=== PATIENT | female | born 1965 | race African-American/Black ===

== ENCOUNTER 2024-08-19 11:16 | Emergency (ER) | payer OTHER, MEDICAID ==
[~2024-08-19] VITALS: Ht 170.2 cm; Wt 140.0 kg
[~2024-08-19 11:16] MED LIST: ALBU18HF2 IH; LISI10TA26 PO
[2024-08-19 11:22] VITALS: O2SAT 98
[2024-08-19] MEDS: ACETAMINOPHEN 325MG TABLET PO ONE (12:06)
[2024-08-19] MEDS: LIDOCAINE 5% PATCH TOP SCH (12:06)
[2024-08-19] MEDS: IBUPROFEN 400MG TABLET PO ONE (12:06)
[2024-08-19 14:28] VITALS: BP 98/62; PULSE 95; RESP 18; TEMP 36.8; O2SAT 98
== END 2024-08-19 16:54 | disposition home or self-care (01) ==
LOC: ER 11:16
DX: M25.551 Pain in right hip (principal); J45.909 Unspecified asthma, uncomplicated; I10 Essential (primary) hypertension; Z79.899 Other long term (current) drug therapy; Z88.0 Allergy status to penicillin; W19.XXXA Unspecified fall, initial encounter; Y93.89 Activity, other specified; Y92.89 Other specified places as the place of occurrence of the external cause; Y99.8 Other external cause status
CPT/HCPCS: 72192; 73502; 99284

== ENCOUNTER 2024-09-11 20:21 | Emergency (ER) | payer MEDICAID, OTHER ==
[~2024-09-11] VITALS: Ht 170.2 cm; Wt 85.0 kg
[2024-09-11 20:24] VITALS: O2SAT 99
[2024-09-11 21:41] LABS: BASOPHILS % 0.4 % (0.0-2.0); DIFFERENTIAL COMMENT 0; EOSINOPHILS % 0.8 % (0.0-5.0); HEMATOCRIT. 42.5 % (36.0-48.0); HEMOGLOBIN. 14.2 g/dL (12.0-16.0); LYMPHOCYTES % 26.1 % (20.0-50.0); MEAN CORPUSCULAR HEMOGLOBIN 34.8 pg (28.0-32.0); MEAN CORPUSCULAR HGB CONC 33.4 g/dL (31.0-37.0); MEAN CORPUSCULAR VOLUME 104.2 fL (81.0-99.0); MEAN PLATELET VOLUME 8.8 fl (7.4-10.4); MONOCYTES % 10.4 % (2.0-8.0); NEUTROPHILS % 62.3 % (40.0-76.0); PLATELET 159 x1000/uL (130-400); RED BLOOD CELL COUNT 4.08 mill/uL (4.2-5.4); RED CELL DISTRIBUTION WIDTH 16.2 % (11.6-14.6); WHITE BLOOD COUNT 5.7 x1000/uL (4.5-11.0)
[2024-09-11 21:42] LABS: CHLORIDE 102 mEq/L (98-107); POTASSIUM 3.1 mEq/L (3.5-5.1); SODIUM 140 mEq/L (136-145)
[2024-09-11 21:43] LABS: CARBON DIOXIDE 27 mEq/L (21-32)
[2024-09-11 21:48] LABS: CREATININE 0.7 mg/dL (0.6-1.0); GLUCOSE 77 mg/dL (70-105); UREA NITROGEN BLOOD 7 mg/dL (9-23)
[2024-09-11 21:49] LABS: INR 1.1; PROTHROMBIN TIME 11.4 sec (9.6-11.0)
[2024-09-11 22:05] LABS: TROPONIN I HIGH SENSITIVITY < 4 ng/L (3.0-34)
[2024-09-11 22:49] LABS: CLARITY URINE CLOUDY (CLEAR); COLOR URINE DARK YELLOW (YELLOW); GLUCOSE URINE NEGATIVE (NEGATIVE); KETONES URINE NEGATIVE (NEGATIVE); LEUKOCYTE ESTERASE URINE 3+ (NEGATIVE); NITRITE URINE POSITIVE (NEGATIVE); OCCULT BLOOD URINE NEGATIVE (NEGATIVE); PROTEIN URINE NEGATIVE (NEGATIVE); SPECIFIC GRAVITY URINE 1.013 (1.005-1.030)
[2024-09-11 23:03] LABS: *AMPHETAMINES SCREEN URINE NEGATIVE (NEGATIVE); *BENZODIAZEPINES SCREEN URINE NEGATIVE (NEGATIVE)
[2024-09-11 23:04] LABS: *BARBITURATES SCREEN URINE NEGATIVE (NEGATIVE); *COCAINE SCREEN URINE NEGATIVE (NEGATIVE); CANNABINOID URINE SCREEN NEGATIVE (NEGATIVE); ECSTASY MDMA SCREEN URINE CONF.TEST INDICATED (NEGATIVE); METHADONE URINE SCREEN NEGATIVE (NEGATIVE); OPIATES URINE SCREEN PRESUMPTIVE POSITIVE (NEGATIVE); PHENCYCLIDINE URINE SCREEN NEGATIVE (NEGATIVE)
[2024-09-11 23:05] LABS: BACTERIA URINE 2+; RBC URINE 0-2 /hpf (0-2); SQUAMOUS EPITHELIAL CELL URINE FEW /lpf (RARE/1+); WBC URINE 15-25 /hpf (0-2)
[2024-09-11] MEDS: VISCOUS LIDOCAINE 2% 15 ML UDC MM SCH (23:09)
[2024-09-11] MEDS: MAGNESIUM/ALUMINUM HYDROXIDE/SIMETHICONE 30ML UDC PO SCH (23:09)
[2024-09-11] MEDS: ACETAMINOPHEN 325MG TABLET PO SCH (23:10)
[2024-09-12 00:04] LABS: TROPONIN I HIGH SENSITIVITY < 4 ng/L (3.0-34)
[2024-09-12] MEDS ORDERED: MORPHINE SULFATE 4 MG/ML INJ (FOR IV/IM USE) IV ONE (02:00)
[2024-09-12 03:15] VITALS: TEMP 36.9; O2SAT 99
[2024-09-12 03:38] VITALS: BP 136/81; PULSE 99; RESP 16
[2024-09-12] MEDS: MORPHINE SULFATE 4 MG/ML INJ (FOR IV/IM USE) IV NR (03:38)
[2024-09-12] MEDS: NITROFURANTOIN 100MG M/M CAPSULE PO NR (03:38)
[2024-09-12] MEDS ORDERED: IOHEXOL-350 100 ML BOTTLE ONE (07:03)
[2024-09-13] MEDS ORDERED: ERGO1250 PO (13:32)
[2024-09-13] MEDS ORDERED: NORT25CA PO (13:32)
[2024-09-13] MEDS ORDERED: AMLO5TAB88 PO (13:32)
[2024-09-13] MEDS ORDERED: BUPR-46 PO (13:32)
[2024-09-13] MEDS ORDERED: FURO20TA4 PO (13:32)
[2024-09-13] MEDS ORDERED: LOSA100T33 PO (13:32)
[2024-09-13] MEDS ORDERED: PREG50CA64 PO (13:32)
[2024-09-13] MEDS ORDERED: DEXA1TAB PO (13:32)
[2024-09-13] MEDS ORDERED: NALT50TA5 PO (13:32)
== END 2024-09-12 04:09 | disposition short-term general hospital (02) ==
LOC: ER 20:21
DX: R07.89 Other chest pain (principal); N39.0 Urinary tract infection, site not specified; J45.909 Unspecified asthma, uncomplicated; I10 Essential (primary) hypertension; R06.02 Shortness of breath; Z00.00 Encounter for general adult medical examination without abnormal findings; Z88.0 Allergy status to penicillin; Z79.899 Other long term (current) drug therapy
CPT/HCPCS: 80305; 80048; 81003; 80320; 83880; 85025; 85379; 85610; 87086; 87186; 84484; 87077; 36415; 71045; 71275; 93005 ×2; 99285; 96374; Q9967; J2270; G0480

== ENCOUNTER 2025-01-09 21:56 | Emergency (ER) | payer OTHER, MEDICAID ==
[~2025-01-09] VITALS: Ht 162.6 cm; Wt 103.0 kg
[~2025-01-09 21:56] MED LIST changes: +AMLO5TAB88 PO; +BUPR-46 PO; +ERGO1250 PO; +FURO20TA4 PO; +LOSA100T33 PO; +NALT50TA5 PO; +NORT25CA PO; +PREG50CA64 PO
[2025-01-09 21:58] VITALS: O2SAT 98
[2025-01-09] MEDS: KETOROLAC 30MG/ML VIAL IM ONE (23:28)
[2025-01-10 03:40] LABS: BASOPHILS % 0.4 % (0.0-2.0); EOSINOPHILS % 0.6 % (0.0-5.0); HEMATOCRIT. 39.2 % (36.0-48.0); HEMOGLOBIN. 12.9 g/dL (12.0-16.0); LYMPHOCYTES % 29.4 % (20.0-50.0); MEAN PLATELET VOLUME 9.5 fl (7.4-10.4); MONOCYTES % 6.9 % (2.0-8.0); NEUTROPHILS % 62.7 % (40.0-76.0); PLATELET 129 x1000/uL (130-400); RED BLOOD CELL COUNT 3.84 mill/uL (4.2-5.4); RED CELL DISTRIBUTION WIDTH 14.0 % (11.6-14.6)
[2025-01-10 03:52] LABS: CREATININE 0.5 mg/dL (0.6-1.0); UREA NITROGEN BLOOD < 5 mg/dL (9-23)
[2025-01-10] MEDS: ONDANSETRON HCL 4MG/2ML INJ IV ONE (03:57)
[2025-01-10] MEDS: MORPHINE SULFATE 4 MG/ML INJ (FOR IV/IM USE) IV ONE (03:57)
[2025-01-10] MEDS: POTASSIUM CHLORIDE 20MEQ/PACKET PO SCH (06:44)
[2025-01-10 07:45] VITALS: BP 138/82; PULSE 100; RESP 15; TEMP 36.7; O2SAT 95
== END 2025-01-10 08:07 | disposition short-term general hospital (02) ==
LOC: ER 21:56 → CMPBEDREQ 01-10 12:22
DX: M25.551 Pain in right hip (principal); I10 Essential (primary) hypertension; Z88.0 Allergy status to penicillin; W19.XXXA Unspecified fall, initial encounter; Y93.89 Activity, other specified; Y92.89 Other specified places as the place of occurrence of the external cause; Y99.8 Other external cause status
CPT/HCPCS: 99285; 73502; 73552; 72100; 96372; 96374; 96375; 80048; 85025; 36415; J1885; J2405; J2270